=== PATIENT | female | born 1990 | race Caucasian/White ===

== ENCOUNTER 2020-03-12 05:30 | Inpatient (IN) ==
--- NOTE | 2020-03-11 13:28 | History & Physical Report ---
Date of Service March 11, 2020 Assessment & Plan (1) Supervision of normal intrauterine in primigravida: - heart rate tracing category 1 with accelerations and variability (2) Breech presentation of fetus: the risks, benefits, and alternatives to the surgery have been discussed. While the benefits will be delivery of the , the risks are bleeding, infection, inadvertent injury to bowel or bladder, readmission or reoperation. All questions answered of the patient, the permit has been signed and she wishes to proceed (3) Encounter for screening laboratory testing for COVID-19 virus: Because it has been 2 weeks since the patient's screen for COVID 19, anesthesia is requesting a rapid test on the morning of admission for her section. History of Present Illness Chief Complaint: Breech at term Primary Care Provider: Oz Ludwig The patient is a 30-year-old 1 para 0, EDC is 15 March, who was admitted at 39+ weeks gestational age for primary section for breech presentation. The patient's breech presentation was diagnosed at 37 weeks gestational age. The patient declined attempted external cephalic version and elected primary section. The patient is not complaining of any signs or symptoms consistent with oliver virus infection The patient has had a benign course. Her blood type is B positive, antibody negative, rubella immune, hepatitis B negative, she had a negative cell free DNA screening, she had a normal 1 hour Glucola at 16 weeks, she had an elevated 1 hour Glucola at 28 weeks with a normal 2 hour glucose tolerance test, and negative 3rd trimester beta strep culture. The patient had a negative COVID 19 screen on 02/26. Allergies Allergy/AdvReac Type Severity Reaction Status Date / Time No Known Drug Allergies Allergy Uncoded 03/09/20 09:12 Home Medications Home Medications Medication Instructions Recorded Confirmed Type omega-3 fatty acids 1,000 mg 1,000 mg PO DAILY 07/31/19 03/11/20 History capsule PNV cmb#95-ferrous fumarate-FA 1 tab PO QAM 03/09/20 03/11/20 History [] Patient History Medical History (Updated 03/11/20 @ 13:27 by Chandana Whatley Jr, MD, FACOG) History of chicken pox No known health problems Surgical History (Updated 03/09/20 @ 09:14 by Leonela A Norris, RN) Hx of local excision of skin lesion 7th grade had jac removed Social History (Updated 07/31/19 @ 13:48 by Taylor Uribe) Smoking Status: Never smoker Second Hand Exposure: No; Hx Alcohol Use: No Hx Substance Use: No Preferred Language: Mongolian Communication Ability: Effective Tax Services Specialist Required: No Beliefs That Will Affect Care: None marital status: marital status details: Fredrick Ocasio (30) [phone] Current Living Situation: Spouse Current Living Situation Comment: lives with spouse, 1 cat, 1 dog, not changing litter current occupational status: employed current occupation: [employer] Feels Safe at Home: Yes Physical Exam Constitutional: WD/WN, vitals as above Respiratory: Auscultation: lungs clear to auscultation bilaterally Cardiovascular: RRR, no murmur, no edema Extremities: no calf tenderness Gastrointestinal (Abdomen): Gravid, Breech, (+) FHT's; EFW 7 1/2lbs Genitourinary: Cervix: deferred Coding Level of Care Code None Diagnoses Supervision of normal intrauterine in primigravida Z34.00 Breech presentation of fetus O32.1XX0 Encounter for screening laboratory testing for COVID-19 virus Z11.59
[2020-03-12 05:57] LABS: Basophils # (auto) 0.02 K/uL (0-0.2); Basophils % (auto) 0.3 %; Eosinophils # (auto) 0.06 K/uL (0-0.5); Eosinophils % (auto) 0.8 %; Hematocrit (blood only) 39.6 % (37-47); Hemoglobin 13.8 g/dL (12.0-16.0); Immature Granulocytes # (auto) 0.03 K/uL (0.00-0.02); Immature Granulocytes % (auto) 0.4 %; Lymphocytes # (auto) 2.17 K/uL (1.2-3.4); Mean Corpuscular Hemoglobin 32.5 pg (25-34); Mean Corpuscular Volume 93.4 fL (80-100); Mean Platelet Volume 11.8 fL (7.4-10.4); Monocytes # (auto) 0.82 K/uL (0.11-0.59); Monocytes % (auto) 10.9 %; Neutrophils # (auto) 4.39 K/uL (1.4-6.5); Neutrophils % (auto) 58.6 %; Platelet Count 162 K/uL (130-400); RDW Coefficient of Variation 12.9 % (11.5-14.5); RDW Standard Deviation 43.5 fL (36.4-46.3); Red Blood Count 4.24 M/uL (4.2-5.4); White Blood Count 7.49 K/uL (4.8-10.8)
[2020-03-12] MEDS ORDERED: LACTATED RINGER'S 1,000 ML IV SCH ×2 (06:00→10:56)
[2020-03-12] MEDS ORDERED: CEFAZOLIN 2,000 MG in SYRINGE 0 ML IV SCH (06:00)
[2020-03-12] MEDS ORDERED: CITRIC ACID/SODIUM CITRATE 15 ML UDC PO SCH (06:00)
[2020-03-12 06:01] LABS: Mean Corpuscular Hgb Conc 34.8 g/dL (32-36)
[2020-03-12] MEDS ORDERED: MoRPHine SULFATE PF 1 MG/ML 10 ML AMP/VIAL ONE (06:44)
[2020-03-12] MEDS ORDERED: fentaNYL citrate 100 MCG/2 ML VIAL ONE (06:44)
--- NOTE | 2020-03-12 06:56 | Anesthesiology Consultation ---
Date of Service March 12, 2020 Assessment & Plan (1) Encounter for pre-operative examination: Chart Review Chart Review: Patient NOT seen in Pre Admission Testing and Acceptable Risk for Labor Epidural Consults Requested none History Surgery Operation Date: 03/12/20 07:30 Proposed Procedures p Section - Chandana Whatley Jr, MD, FACOG Height/Weight Height: 5 ft 3 in Weight: 68.492 kg Allergies Allergy/AdvReac Type Severity Reaction Status Date / Time No Known Allergies Allergy Verified 03/11/20 21:52 Medications Home Medications Medication Instructions Recorded Confirmed Last Taken omega-3 fatty acids 1,000 mg 1,000 mg PO DAILY 07/31/19 03/11/20 Unknown capsule PNV cmb#95-ferrous fumarate-FA 1 tab PO QAM 03/09/20 03/11/20 Unknown [] Active Medications Generic Name Dose Route Start Last Admin Trade Name Freq PRN Reason Stop Dose Admin Lactated Ringer's 1,000 mls @ 999 mls/hr 03/12/20 06:00 03/12/20 05:44 Lr IV 03/12/20 12:00 999 mls/hr .Q1H1M GILDARDO Administration NPO Date Last Intake of Fluids: 03/11/20 Time Last Intake of Fluids: 23:30 Date Last Intake of Solids: 03/11/20 Time Last Intake of Solids: 21:00 Past Medical History Medical History History of chicken pox No known health problems Exercise / Class Metabolic Activity II 4-5 Yardwork/Stairs/Walk up hill Past Family History Family History Father Diabetes Hypertension Dyslipidemia Grandfather (Maternal) Diabetes Sister MTHFR gene mutation Denies family history of Ovarian cancer Breast cancer Colorectal cancer Uterine cancer Past Surgical History Surgical History Hx of local excision of skin lesion 7th grade had jac removed Past Anesthesia History No Hx of Anesthesia Complications and No Family Hx of Anesthesia Complications History of PONV No Hx of PONV and No Hx of Motion Sickness Social History Smoking Status: Never smoker Do You Dip or Chew Tobacco: No Hx Alcohol Use: Yes Hx Substance Use: No substance use type: does not use Physical Exam Vital Signs Last Vital Signs Temp 37.2 C 03/12/20 05:44 Pulse 65 03/12/20 05:47 Resp 18 03/12/20 05:44 BP 118/71 03/12/20 05:47 Testing Laboratory Results 03/12/20 05:41 Blood Type B Positive 03/12/20 05:41 Antibody Screen NEGATIVE 03/12/20 05:41
--- NOTE | 2020-03-12 07:24 | History & Physical Bridge Note ---
Date of Service March 12, 2020 History & Physical Bridge Note I have examined the patient, reviewed the History & Physical and in the interval since the performance of the History & Physical I have noted the following changes of clinical significance: Rapid COVID 19 negative
[2020-03-12] MEDS ORDERED: NALOXONE HCL 0.08 MG in SYRINGE 1.8 ML IV PRN (07:54)
[2020-03-12] MEDS ORDERED: MoRPHine SULFATE PF 1 MG/ML 10 ML AMP/VIAL INT SPINAL ONE (07:54)
[2020-03-12] MEDS ORDERED: NALOXONE HCL 1 MG in SODIUM CHLORIDE 0.9% 1000ML 1,000 ML IV PRN (07:54)
[2020-03-12] MEDS ORDERED: DiphenhydrAMINE HCL 50 MG/ML VIAL IV PRN (07:54)
[2020-03-12] MEDS ORDERED: ONDANSETRON INJ 2 MG/ML 2 ML VIAL IV PRN (07:54)
[2020-03-12] MEDS ORDERED: NALOXONE HCL 0.4 MG/1 ML VIAL/CARP IV PRN (07:54)
[2020-03-12] MEDS ORDERED: ePHEDrine sulfate 50 MG/ML AMP IV PRN (07:54)
[2020-03-12] MEDS ORDERED: MoRPHine SULFATE 2 MG/ML CARP IV PRN (07:54)
[2020-03-12] MEDS ORDERED: LACTATED RINGER'S 500 ML IV PRN (07:54)
[2020-03-12] MEDS ORDERED: SODIUM CHLORIDE 0.9% 1000ML 1,000 ML IV SCH (08:00)
[2020-03-12] MEDS ORDERED: NO NARCOTICS OR SEDATIVES SCH (08:00)
[2020-03-12] MEDS ORDERED: OXYTOCIN 10 UNITS/ML VIAL ONE (08:08)
[2020-03-12] MEDS ORDERED: ONDANSETRON INJ 2 MG/ML 2 ML VIAL ONE (08:08)
[2020-03-12] MEDS ORDERED: PHENYLEPHRINE 100MCG/ML 5ML SYR ONE (08:08)
[2020-03-12 08:25] LABS: Base Excess Cord Arterial Bld 1.1 mEq/L (-9-1.8); CO2 Cord Arterial Blood 55 mmHg (39.1-73.5); HCO3 Cord Arterial Blood 28 mmol/L (19.7-28.5); PO2 Cord Arterial Blood 19 mmHg (4.1-31.7); pH Cord Arterial Blood 7.33 (7.1-7.38)
[2020-03-12 08:28] LABS: Base Excess Cord Venous Blood 0.7 mEq/L (-7.7-1.9); Cord Venous Blood HCO3 26 mmol/L (18.4-26.8); Cord Venous Blood PCO2 42 mmHg (30.4-57.2); Cord Venous Blood PO2 33 mmHg (14.1-43.3); Cord Venous Blood pH 7.41 (7.20-7.44); O2 Saturation Cord Venous Bld 67.1 % (<68)
[2020-03-12 08:29] LABS: Oxygen Sat Cord Arterial Blood < 60.0 % (<60)
--- NOTE | 2020-03-12 08:32 | Post Operative Brief Note ---
PG Immediate Post Op with CF Date of Surgery March 12, 2020 Pre & Post Diagnosis Operation Date: 03/12/20 07:30 Pre-Op Diagnosis: Term ; Breech Post-Op Diagnosis: Same; Delivery of a live female child at 0804 I identified the patient and participated in the time-out.: Yes Procedure Operation Date: 03/12/20 07:30 Actual Procedures p Section - Chandana Whatley Jr, MD, FACOG Surgeon Chandana Whatley Jr, MD, FACOG Paralegals Esau Estimated Blood Loss 800 Findings See Below (Viable femal , Apgars 8/9; weight 6lbs 10 ozs, gasses pending, normal tubes and ovaries bilaterally) Specimens Specimen Description: A. Placenta-hold B. arterial and venous gases C. Cord Blood Drains Maria Catheter
[2020-03-12] MEDS ORDERED: MAGNESIUM HYDROXIDE SUSP 30 ML UDC PO PRN (10:56)
[2020-03-12] MEDS ORDERED: DIPHTHERIA/TETANUS/PERTUSSIS 0.5 ML SYR/VIAL IM ONE (10:56)
[2020-03-12] MEDS ORDERED: SUPERCREAM 0.870% 15 GM JAR EXT PRN (10:56)
[2020-03-12] MEDS ORDERED: HYDROCORTISONE ACETATE 25 MG SUPP PR PRN (10:56)
[2020-03-12] MEDS ORDERED: SENNA 8.6 MG TAB PO PRN (10:56)
[2020-03-12] MEDS ORDERED: BENZOCAINE 20% AER SPR 82.5 GM CAN EXT PRN (10:56)
[2020-03-12] MEDS: OXYTOCIN 20 UNITS in LACTATED RINGER'S 1,000 ML IV SCH ×2 (11:17→19:10)
[2020-03-12] MEDS: SIMETHICONE 80 MG CHEW PO SCH ×3 (13:00→20:11)
--- NOTE | 2020-03-12 13:09 | Operative Report (OR) ---
DATE OF OPERATION: 03/12/2020 PREOPERATIVE DIAGNOSES: 1. Term . 2. Breech presentation. POSTOPERATIVE DIAGNOSES: 1. Term . 2. Breech presentation. PROCEDURE PERFORMED: Primary low cervical transverse section. SURGEON: Chandana Whatley MD. EQUIPMENT HIRE MANAGER: Janeth Cifuentes MD. ANESTHESIA: Spinal. FINDINGS: Viable female with Apgars of 8 and 9. Baby delivered from a complete breech presentation. Nuchal cord x1. Cord blood samples, cord gas samples obtained. Placenta delivered spontaneously. ESTIMATED BLOOD LOSS: 300 mL. LABOR NOTE: The patient was taken to the operating room and after spinal anesthesia, was placed in supine position and draped and prepped in a sterile fashion. Pfannenstiel type incision was made and underlying subcutaneous tissue was dissected down to the ventral abdominal fascia, which was nicked and opened in a horizontal manner. Preperitoneal fascia was dissected away until the peritoneal cavity was entered and opened in a vertical manner. Bladder blade was placed and the uterus was entered sharply and extended in a semilunar fashion manually. Artificial rupture of membranes for clear fluid. Viable female infant delivered from a complete breech presentation. Nuchal cord x1. Cord was clamped and cut, and the baby was passed off to pediatrics who was in attendance for delivery. Cord gases, cord blood samples obtained. Placenta was delivered spontaneously. The uterus was exteriorized. The uterine cavity was wiped clean of any residual blood tissue and/or clot. The uterine incision was then closed with 2 layers of 4-0 Vicryl, the first a running locking stitch and the second an imbricating stitch. Hemostasis was achieved, and the uterus was returned to the pelvic cavity. Pericolic gutters were cleared bilaterally of any blood tissue and/or clot. The pelvis was thoroughly irrigated with 1000 mL of warm saline. Sponge and needle count was correct. Rectus muscle was plicated in the midline with a running 2-0 Vicryl stitch. The fascia was closed laterally with a running 0 Vicryl suture. The subcutaneous tissue was reapproximated with interrupted 2-0 plain stitches and the skin incision was closed with a 4-0 Monocryl subcuticular suture. Sterile dressing was applied, and the patient was taken to the recovery room in satisfactory condition. I attest to the content of the Intraoperative Record and any orders documented therein. Any exception s are noted below.
--- NOTE | 2020-03-12 13:17 | Anesthesiology Progress Note ---
Date of Service March 12, 2020 Anesthesia Post Procedure Vital Signs Vital Signs: Temp Pulse Pulse Resp BP BP Pulse Ox 03/12/20 12:15 36.5 C 60 18 116/68 97 03/12/20 11:45 36.9 C 65 20 102/58 L 95 03/12/20 11:15 36.9 C 78 18 119/66 95 03/12/20 11:03 62 109/67 03/12/20 11:02 76 94 03/12/20 11:00 78 109/68 03/12/20 10:59 85 93 03/12/20 10:56 70 92 03/12/20 10:54 66 95 03/12/20 10:50 63 107/67 93 03/12/20 10:49 65 96 03/12/20 10:44 77 96 03/12/20 10:40 62 16 109/67 94 03/12/20 10:39 73 96 03/12/20 10:34 64 96 03/12/20 10:30 63 105/68 03/12/20 10:29 60 97 03/12/20 10:24 66 97 03/12/20 10:20 60 102/66 03/12/20 10:19 59 L 96 03/12/20 10:14 62 96 03/12/20 10:10 36.5 C 58 L 18 110/71 96 03/12/20 10:09 57 L 96 03/12/20 10:04 62 96 03/12/20 10:00 60 106/68 03/12/20 09:59 65 98 03/12/20 09:54 59 L 98 03/12/20 09:50 60 111/73 03/12/20 09:49 61 97 03/12/20 09:44 69 108/72 97 03/12/20 09:40 60 18 106/68 97 03/12/20 09:39 70 97 03/12/20 09:34 82 97 03/12/20 09:30 63 18 108/72 97 03/12/20 09:29 74 98 03/12/20 09:24 66 99 03/12/20 09:20 70 16 115/58 L 97 03/12/20 09:19 80 99 03/12/20 09:14 81 100 03/12/20 09:10 71 16 110/56 L 98 03/12/20 09:09 72 98 03/12/20 09:04 71 98 03/12/20 09:00 73 16 116/62 98 03/12/20 08:59 82 99 03/12/20 08:54 69 99 03/12/20 08:50 60 16 119/71 100 03/12/20 08:49 66 100 03/12/20 08:47 83 92 03/12/20 08:44 75 99 03/12/20 08:40 61 118/64 03/12/20 08:39 37.1 C 61 22 118/64 99 03/12/20 07:14 37.1 C 77 16 118/76 03/12/20 07:05 37.1 C 77 16 118/76 03/12/20 05:47 65 118/71 03/12/20 05:44 37.2 C 65 18 /71 Pain Intensity Abdomen: Pain Intensity: 2 Transfer of Care Handoff Completed per policy Notes Mental Status: alert / awake / arousable and participated in evaluation Patient Amnestic to Procedure: No Nausea / Vomiting: adequately controlled Pain: adequately controlled Airway Patency, RR, SpO2: stable & adequate BP & HR: stable & adequate Hydration State: stable & adequate Neuraxial Anesthesia: was administered and sensory block is resolving Anesthetic Complications: no major complications apparent and Pt Satisfied with anesthetic care
[2020-03-12] MEDS: KETOROLAC 30 MG/ML VIAL IV PRN ×2 (14:12→20:11)
[2020-03-12] MEDS: DOCUSATE SODIUM 100 MG CAP PO SCH (20:11)
[2020-03-13] MEDS ORDERED: DC INTRASPINAL MORPHINE ONE (01:54)
[2020-03-13] MEDS ORDERED: KETOROLAC 30 MG/ML VIAL IV PRN (01:55)
[2020-03-13] MEDS ORDERED: MEPERIDINE HCL 50 MG/ML CARP IV PRN (01:55)
[2020-03-13] MEDS ORDERED: DiphenhydrAMINE HCL 50 MG/ML VIAL IV PRN (01:55)
[2020-03-13] MEDS ORDERED: ONDANSETRON INJ 2 MG/ML 2 ML VIAL IV PRN (01:55)
[2020-03-13] MEDS ORDERED: PROMETHAZINE HCL 25 MG in SODIUM CHLORIDE 0.9% 50 ML IV PRN (01:55)
--- NOTE | 2020-03-13 04:57 | Obstetrical Progress Note ---
Date of Service <Dillon Lutz MD - Last Filed: 03/13/20 06:20> March 13, 2020 Assessment & Plan <Dillon Lutz MD - Last Filed: 03/13/20 06:20> (1) S/P : Yessica is a 30 year old now POD-1 following primary in the setting of breech positioning at term who is doing well this morning. - Pain well controlled with Percocet and ibuprofen 600mg Q4H PRN. - Routine post-operative care -- d/c brewster this AM, trial of OOB, progressive ambulation, and resumption of normal diet as tolerated Day #:: 1 Subjective <Dillon Lutz MD - Last Filed: 03/13/20 06:20> Yessica is a 30 y/o female who is POD #1 following primary c/s delivery at 39-4/7 weeks in the setting of breech positioning at term. She reports feeling well overall this morning. Endorses some abdominal cramping and pain that are well managed on analgesics. Voiding clear urine via Brewster catheter. Transitioned back to a normal diet last night without difficulty. Passed gas last night but no bowel movements yet. Currently breast feeding. Review of Systems Denies fever, chills, sweats Denies shortness of breath, difficulty breathing, chest pain, palpitations, chest pressure. Denies breast pain. Denies dysuria. Denies headache or changes in vision. Physical Exam <Dillon Lutz MD - Last Filed: 03/13/20 06:20> General: Alert, oriented. No acute distress. Cardiac: Regular rate and rhythm, no murmurs/rubs/gallops. Respiratory: Clear to auscultation bilaterally a/p, no wheezes/rales/rhonchi. No increased work of breathing. Symmetrical chest rise. No respiratory distress. Abdomen: Soft, nontender, nondistended. Bowel sounds present. Uterus: Uterine fundus firm, palpable 1 cm below umbilicus. Surgical scar clean and healing well. Lower Extremities: No lower extremity edema or swelling. No deep calf pain. Darlene's negative bilaterally. Results & Data <Dillon Lutz MD - Last Filed: 03/13/20 06:20> Vital Signs (Past 12 Hours) Vital Signs Temp Pulse Resp BP Pulse Ox 03/13/20 03:50 36.7 C 60 18 112/71 97 03/13/20 01:30 18 96 03/13/20 00:20 18 97 03/12/20 23:50 36.6 C 68 18 106/66 97 03/12/20 22:10 18 96 03/12/20 21:20 18 96 03/12/20 20:15 18 97 03/12/20 19:35 36.5 C 70 18 118/74 96 03/12/20 18:15 18 96 03/12/20 17:15 18 96 <Janeth Cifuentes MD, FACOG - Last Filed: 03/13/20 07:26> Co-Signing Physician Notes Resident Physician Supervision Note: I interviewed and examined the patient. Discussed with Dr. Lutz and agree with findings and plan as documented in the note. Any exceptions or clarifications are listed here: Doing well. Routine ppd 1 care. Documented By: Janeth Cifuentes MD, FACOG Resident Activity Tracking <Dillon Lutz MD - Last Filed: 03/13/20 06:20> Resident Involvement: Resident Care Provided Care Provided: Adult Hospital Medicine and OB Delivery
[2020-03-13 06:39] LABS: Basophils # (auto) 0.01 K/uL (0-0.2); Basophils % (auto) 0.1 %; Eosinophils # (auto) 0.05 K/uL (0-0.5); Eosinophils % (auto) 0.6 %; Hematocrit (blood only) 33.2 % (37-47); Hemoglobin 11.6 g/dL (12.0-16.0); Immature Granulocytes # (auto) 0.02 K/uL (0.00-0.02); Immature Granulocytes % (auto) 0.2 %; Lymphocytes # (auto) 1.56 K/uL (1.2-3.4); Lymphocytes % (auto) 18.4 %; Mean Corpuscular Hemoglobin 32.9 pg (25-34); Mean Corpuscular Hgb Conc 34.9 g/dL (32-36); Mean Corpuscular Volume 94.1 fL (80-100); Mean Platelet Volume 10.2 fL (7.4-10.4); Monocytes # (auto) 0.68 K/uL (0.11-0.59); Neutrophils # (auto) 6.17 K/uL (1.4-6.5); Neutrophils % (auto) 72.7 %; Platelet Count 129 K/uL (130-400); RDW Coefficient of Variation 12.8 % (11.5-14.5); Red Blood Count 3.53 M/uL (4.2-5.4); White Blood Count 8.49 K/uL (4.8-10.8)
[2020-03-13] MEDS: FERROUS SULFATE 325 MG TAB PO SCH (08:08)
[2020-03-13] MEDS: PRENATAL VITAMIN 1 TAB PO SCH (08:08)
[2020-03-13] MEDS: SIMETHICONE 80 MG CHEW PO SCH ×4 (08:08→22:11)
[2020-03-13] MEDS: DOCUSATE SODIUM 100 MG CAP PO SCH ×2 (08:08→22:12)
[2020-03-13] MEDS: IBUPROFEN 600 MG TAB PO PRN ×3 (08:57→22:11)
[2020-03-13] MEDS: OXYCODONE/ACETAMINOPHEN 5mg/325mg TAB PO PRN ×3 (08:58→22:12)
[2020-03-13] MEDS ORDERED: bisacodyL 5 MG TABEC PO SCH (20:00)
[2020-03-14 00:48] VITALS: O2SAT 97
[2020-03-14] MEDS: IBUPROFEN 600 MG TAB PO PRN ×3 (02:29→13:41)
[2020-03-14 07:00] LABS: Hematocrit (blood only) 33.2 % (37-47); Hemoglobin 10.9 g/dL (12.0-16.0)
--- NOTE | 2020-03-14 07:38 | Obstetrical Progress Note ---
Date of Service March 14, 2020 Assessment & Plan (1) S/P : - H/H stable - tolerating regular diet -desires d/c - instructions/ Rx given - f/u in 2 weeks for post-op check Subjective Ambulation: ambulating normally Voiding: no voiding problems Diet Tolerance:: regular diet Feeding Type:: breast feeding Physical Exam Constitutional WD/WN, vitals as above Respiratory normal respiratory effort, lungs clear to auscultation Cardiovascular RRR, no murmur, no edema Gastrointestinal (Abdomen) Incision intact, appropriate post-op tenderness Musculoskeletal (-) deep calf tenderness Results & Data ([facility]) Vital Signs (Past 12 Hours) Vital Signs Temp Pulse Resp BP Pulse Ox 03/14/20 00:05 97.9 F 69 14 111/72 97 03/13/20 20:10 98.2 F 64 16 117/75 96
[2020-03-14] MEDS: SIMETHICONE 80 MG CHEW PO SCH ×2 (07:59→13:41)
[2020-03-14] MEDS: PRENATAL VITAMIN 1 TAB PO SCH (07:59)
[2020-03-14] MEDS: OXYCODONE/ACETAMINOPHEN 5mg/325mg TAB PO PRN ×2 (07:59→13:41)
[2020-03-14] MEDS: FERROUS SULFATE 325 MG TAB PO SCH (07:59)
[2020-03-14] MEDS: DOCUSATE SODIUM 100 MG CAP PO SCH (07:59)
[2020-03-14] MEDS ORDERED: bisacodyL 10 MG SUPP PR PRN (08:26)
[2020-03-14 09:29] VITALS: BP 121/77; PULSE 70; TEMP 99
--- NOTE | 2020-03-14 14:05 | Discharge Summary ---
Date of Service March 14, 2020 Admission HPI Per Admitting Provider The patient is a 30-year-old 1 para 0, EDC is 15 March, who was admitted at 39+ weeks gestational age for primary section for breech presentation. The patient's breech presentation was diagnosed at 37 weeks gestational age. The patient declined attempted external cephalic version and elected primary section. The patient is not complaining of any signs or symptoms consistent with oliver virus infection The patient has had a benign course. Her blood type is B positive, antibody negative, rubella immune, hepatitis B negative, she had a negative cell free DNA screening, she had a normal 1 hour Glucola at 16 weeks, she had an elevated 1 hour Glucola at 28 weeks with a normal 2 hour glucose tolerance test, and negative 3rd trimester beta strep culture. The patient had a negative COVID 19 screen on 02/26. Discharge Data Consultations 03/12/20 05:31 Consult Anesthesiology Stat Procedures Performed Operation Date: 03/12/20 07:30 Actual Procedures p Section - Chandana Whatley Jr, MD, [facility] Course (1) Breech presentation of fetus: On the day of admission the patient was taken to the operating room where she underwent the above listed procedures. Viable female infant with Apgars of 8 and 9. Baby delivered from a complete breech presentation. Nuchal cord x1. Postoperatively the patient did well. The Maria catheter was removed on the first postoperative day. H&H was stable. By the second postoperative day the patient was tolerating a regular diet and ambulating without difficulty. She was discharged home with routine discharge instructions and the prescriptions for the medications as listed. She will follow-up in the office for a two-week postoperative check, but as always she is been instructed to call with any questions problems or difficulties. Coding Level of Care Code None Diagnoses Breech presentation of fetus O32.1XX0
== END 2020-03-14 14:40 | disposition home or self-care (01) | DRG 788 ==
LOC: 4S1 05:30 → EDSTATUS 07:30 → 4S2 11:15